=== PATIENT | female | born 1945 | race Two or more races ===

== ENCOUNTER → 2024-06-13 | Emergency (ER) | payer OTHER ==
[~2024-06-13] VITALS: Ht 160 cm; Wt 53.1 kg
[~2024-06-13] MED LIST: ATORVASTATIN CA10 MG PO; LEVOTHYROXINE137 MCG PO; LISINOPRIL2.5 MG PO; METFORMIN HCL500 M4 PO; METOPROLOL SUCC25 MG PO
== END | disposition left against medical advice (07) ==
LOC: ER 17:38
DX: Z53.21 Procedure and treatment not carried out due to patient leaving prior to being seen by health care provider (principal)